=== PATIENT | male | born 1995 | race Caucasian/White ===

== ENCOUNTER 2017-08-31 15:30 | Day surgery (SDC) | payer OTHER ==
[~2017-08-31] VITALS: Ht 190.5 cm; Wt 55.5 kg
[2017-08-31] VITALS (9 sets, daily range): BP systolic 103–129; BP diastolic 58–87; PULSE 108–120; TEMP 98.5–99.1
== END 2017-08-31 19:52 | disposition home or self-care (01) ==
LOC: SDCO 15:30 → SURG 15:30 → SDCO 19:52
DX: K35.80 Unspecified acute appendicitis (principal); K38.1 Appendicular concretions; F41.9 Anxiety disorder, unspecified
CPT/HCPCS: OP; J0694; J1100; J1885; J2405; J2704; Q9967

== ENCOUNTER → 2019-12-11 | Outpatient (CLI) | payer OTHER | LOC: ZCOL.LAB 17:32 | DX: J02.9 Acute pharyngitis, unspecified (principal); Z20.828 Contact with and (suspected) exposure to other viral communicable diseases ==